=== PATIENT | male | born 1985 | race Asian ===

== ENCOUNTER 2021-12-24 17:25 | Emergency (ER) | payer MEDICAID, OTHER ==
[~2021-12-24] VITALS: Ht 172.7 cm; Wt 134.7 kg
--- NOTE | 2021-12-24 17:58 | NUR ---
BIBS W/ C/O CHEST PAIN THAT FEELS PRESSURE-LIKE AND FATIGUE X 1 MONTH. TO ER BED 11. AMBULATORY.
--- NOTE | 2021-12-24 18:52 | NUR ---
IV LINE ESTABLISHED ON RAC #20; BLOOD DRAWN/COLLECTED AND SENT TO LAB. LINE SALINE LOCKED.
[2021-12-24 19:00] VITALS: BP 125/80
== END 2021-12-24 19:12 | disposition home or self-care (01) ==
LOC: ER 17:33
DX: R07.89 Other chest pain (principal); F41.9 Anxiety disorder, unspecified